=== PATIENT | female | born 1995 | race Two or more races ===

== ENCOUNTER 2023-02-25 18:21 | Emergency (ER) | payer OTHER ==
[~2023-02-25] VITALS: Ht 162.6 cm; Wt 95.3 kg
[~2023-02-25 18:21] MED LIST: LEVSIN0.125 MG; PEPCID40 MG PO; ZOFRAN4 MG PO
== END 2023-02-25 21:25 | disposition home or self-care (01) ==
LOC: ER 18:21
DX: F41.0 Panic disorder [episodic paroxysmal anxiety] (principal); R00.2 Palpitations